=== PATIENT | female | born 1995 | race Caucasian/White ===

== ENCOUNTER 2017-11-25 14:13 | Inpatient (IN) | payer OTHER ==
[2017-11-25 15:24] LABS: ADD MAN DIFF? NO
[2017-11-25 15:28] LABS: BASOPHILS % 0.1 % (0.0-2.0); EOSINOPHILS % 0.1 % (0.0-7.0); HEMATOCRIT 29.8 % (37.0-47.0); HEMOGLOBIN 10.1 g/dl (12.0-16.0); LYMPHOCYTES # 1.6 10^3/ul (0.8-2.9); LYMPHOCYTES % 16.1 % (15.0-51.0); MEAN CORPUSCULAR HEMOGLOBIN 30.4 pg (29.0-33.0); MEAN CORPUSCULAR HGB CONC 33.9 g/dl (32.0-37.0); MEAN CORPUSCULAR VOLUME 89.8 fl (82.0-101.0); MEAN PLATELET VOLUME 10.7 fl (7.4-10.4); MONOCYTE # 0.5 10^3/ul (0.3-0.9); MONOCYTES % 4.5 % (0.0-11.0); NEUTROPHIL # 7.8 10^3/ul (1.6-7.5); NEUTROPHILS % 78.6 % (39.0-77.0); PLATELET COUNT 229 10^3/UL (140-415); RED BLOOD COUNT 3.32 10^6/ul (4.20-5.40)
[2017-11-25 15:35] LABS: ADD UMIC YES; UR ASCORBIC ACID 20 mg/dL (NEGATIVE); UR BACTERIA FEW /HPF (NONE SEEN); UR BILIRUBIN (Dip) NEGATIVE (NEGATIVE); UR BLOOD (Dip) 2+ mg/dL (NEGATIVE); UR CLARITY CLEAR (CLEAR); UR COLOR YELLOW (YELLOW); UR GLUCOSE (Dip) 1+ mg/dL (NEGATIVE); UR KETONES (Dip) 2+ mg/dL (NEGATIVE); UR LEUKOCYTE ESTERASE (Dip) NEGATIVE Leu/ul (NEGATIVE); UR NITRITE (Dip) NEGATIVE (NEGATIVE); UR RBC 42 /HPF (0-5); UR SPECIFIC GRAVITY (Dip) 1.015 (1.003-1.030); UR TOTAL PROTEIN (Dip) NEGATIVE (NEGATIVE); UR UROBILINOGEN (Dip) 1+ mg/dL (NEGATIVE); UR WBC 5 /HPF (0-5)
[2017-11-25] MEDS: LACTATED RINGER'S 1,000 ML IV (15:40)
[2017-11-25] MEDS ORDERED: MAGNESIUM SULFATE 4 GM/100 ML 100 ML (16:19)
[2017-11-25] MEDS: MAGNESIUM SULFATE 4 GM/100 ML 100 ML IV (16:42)
[2017-11-25] MEDS: MAGNESIUM SULFATE 20 GM/500 ML 500 ML IV (17:06)
[2017-11-25] MEDS: BETAMET NA PHOS/AC(6 MG/ML) 5ML INJ IM (17:12)
[2017-11-25 19:04] LABS: MAGNESIUM 4.8 mg/dl (1.7-2.5)
[2017-11-26 01:40] LABS: MAGNESIUM 6.2 mg/dl (1.7-2.5)
[2017-11-26] MEDS ORDERED: ONDANSETRON 4 MG INJ (02:12)
[2017-11-26] MEDS: ONDANSETRON 4 MG INJ IV ×2 (02:25→16:39)
[2017-11-26] MEDS: MAGNESIUM SULFATE 20 GM/500 ML 500 ML IV ×2 (04:23→17:26)
[2017-11-26] MEDS: LACTATED RINGER'S 1,000 ML IV ×3 (05:14→19:06)
[2017-11-26 12:39] LABS: MAGNESIUM 6.3 mg/dl (1.7-2.5)
[2017-11-26 15:10] LABS: RAPID PLASMA REAGIN NONREACTIVE (NR)
[2017-11-26] MEDS: BETAMET NA PHOS/AC(6 MG/ML) 5ML INJ IM (17:17)
[2017-11-26 18:09] LABS: MAGNESIUM 5.7 mg/dl (1.7-2.5)
[2017-11-27] MEDS: ONDANSETRON 4 MG INJ IV (00:15)
[2017-11-27 01:09] LABS: MAGNESIUM 5.5 mg/dl (1.7-2.5)
[2017-11-27] MEDS: LACTATED RINGER'S 1,000 ML IV ×2 (06:09→15:08)
[2017-11-27] MEDS: MAGNESIUM SULFATE 20 GM/500 ML 500 ML IV (13:55)
[2017-11-27 16:48] LABS: MAGNESIUM 5.3 mg/dl (1.7-2.5)
[2017-11-28] MEDS: LACTATED RINGER'S 1,000 ML IV ×2 (00:21→10:11)
[2017-11-28] MEDS: ONDANSETRON 4 MG INJ IV (05:37)
[2017-11-28] MEDS: SENNA TAB PO (11:34)
== END 2017-11-28 15:30 | disposition home or self-care (01) | DRG 780 ==
LOC: OBT 14:13 → L-D 11-26 16:25 → PP1 11-27 15:21 → L-D 14:14 → OBT 16:14 → L-D 16:10
PROVIDERS: Obstetrics & Gynecology
DX: O47.03 False labor before 37 completed weeks of gestation, third trimester (principal); Z3A.33 33 weeks gestation of pregnancy
CPT/HCPCS: 36415; 76815; 76817; 76818; 81001; 83735; 85025; 86592; 86850; 86900; 86901; 87086; 96360

== ENCOUNTER 2018-01-09 20:22 | Inpatient (IN) | payer OTHER ==
[2018-01-09] MEDS: AMPICILLIN 2 GM/NS (PMX) 100 ML IV (00:05)
[2018-01-09] MEDS ORDERED: CARBOPROST 250 MCG INJ IM (21:00)
[2018-01-09] MEDS ORDERED: IBUPROFEN 600 MG TAB PO (21:00)
[2018-01-09] MEDS ORDERED: MISOPROSTOL 200 MCG TAB PR (21:00)
[2018-01-09] MEDS ORDERED: LIDOCAINE 1% (MPF) 30 ML INJ INJ (21:00)
[2018-01-09] MEDS ORDERED: METHYLERGONOVINE 0.2 MG INJ IM (21:00)
[2018-01-09] MEDS ORDERED: BUTORPHANOL 1 MG INJ IV (21:00)
[2018-01-09] MEDS ORDERED: OXYTOCIN 30 UNITS/LR 500 ML IV (21:00)
[2018-01-09] MEDS ORDERED: HYDROCODONE/APAP (5/325) TAB PO (21:00)
[2018-01-09] MEDS: LACTATED RINGER'S 1,000 ML IV ×2 (21:15→22:34)
[2018-01-09 22:10] LABS: ADD MAN DIFF? NO
[2018-01-09 22:14] LABS: BASOPHILS % 0.2 % (0.0-2.0); EOSINOPHILS % 0.3 % (0.0-7.0); HEMATOCRIT 30.8 % (37.0-47.0); HEMOGLOBIN 10.1 g/dl (12.0-16.0); LYMPHOCYTES # 2.2 10^3/ul (0.8-2.9); MEAN CORPUSCULAR HEMOGLOBIN 28.7 pg (29.0-33.0); MEAN CORPUSCULAR HGB CONC 32.8 g/dl (32.0-37.0); MEAN CORPUSCULAR VOLUME 87.5 fl (82.0-101.0); MEAN PLATELET VOLUME 11.7 fl (7.4-10.4); MONOCYTE # 0.6 10^3/ul (0.3-0.9); NEUTROPHIL # 6.3 10^3/ul (1.6-7.5); NEUTROPHILS % 69.1 % (39.0-77.0); NUCLEATED RED BLOOD CELLS% 0.2 /100WBC (0.0-0.0); PLATELET COUNT 268 10^3/UL (140-415); RED BLOOD COUNT 3.52 10^6/ul (4.20-5.40)
[2018-01-09 22:14] LABS: WHITE BLOOD COUNT 9.2 10^3/ul (4.8-10.8)
[2018-01-09 22:29] LABS: INR 0.93; PROTIME 12.6 Sec (11.9-14.9)
[2018-01-09 22:30] LABS: PARTIAL THROMBOPLASTIN TIME 26.2 Sec (25.0-35.0)
[2018-01-09 22:57] LABS: ADD UMIC YES; UR ASCORBIC ACID NEGATIVE (NEGATIVE); UR BILIRUBIN (Dip) NEGATIVE (NEGATIVE); UR BLOOD (Dip) NEGATIVE (NEGATIVE); UR CLARITY CLEAR (CLEAR); UR COLOR STRAW (YELLOW); UR GLUCOSE (Dip) NEGATIVE (NEGATIVE); UR KETONES (Dip) NEGATIVE (NEGATIVE); UR LEUKOCYTE ESTERASE (Dip) TRACE Leu/ul (NEGATIVE); UR NITRITE (Dip) NEGATIVE (NEGATIVE); UR RBC 1 /HPF (0-5); UR SPECIFIC GRAVITY (Dip) 1.005 (1.003-1.030); UR TOTAL PROTEIN (Dip) NEGATIVE (NEGATIVE); UR UROBILINOGEN (Dip) NEGATIVE (NEGATIVE); UR WBC 0 /HPF (0-5)
[2018-01-10] MEDS: AMPICILLIN 1 GM/NS (PMX) 50 ML IV ×6 (04:48→22:25)
[2018-01-10] MEDS ORDERED: DIPHENHYDRAMINE 50 MG INJ IV (05:00)
[2018-01-10] MEDS ORDERED: NALOXONE (0.4 MG/ML) INJ IV ×2 (05:00→18:30)
[2018-01-10] MEDS: LACTATED RINGER'S 1,000 ML IV ×3 (07:29→18:23)
[2018-01-10] MEDS: OXYTOCIN 30 UNITS/LR 500 ML IV (10:12)
[2018-01-10 15:22] LABS: RAPID PLASMA REAGIN NONREACTIVE (NR)
[2018-01-10] MEDS: BUTORPHANOL 2 MG INJ IV (15:26)
[2018-01-10] MEDS: FENTAnyl 2MCG/ML-ROPIV 0.2% 100 ML BAG EPI ×2 (20:07→22:45)
[2018-01-10 21:12] LABS: HEPATITIS B SURFACE ANTIGEN NEGATIVE (NEGATIVE)
[2018-01-10] MEDS: ONDANSETRON 4 MG INJ IV (22:17)
[2018-01-11] MEDS: LACTATED RINGER'S 1,000 ML IV ×2 (01:49→09:21)
[2018-01-11] MEDS: AMPICILLIN 1 GM/NS (PMX) 50 ML IV ×3 (02:34→11:00)
[2018-01-11] MEDS: ONDANSETRON 4 MG INJ IV (03:54)
[2018-01-11] MEDS: FENTAnyl 2MCG/ML-ROPIV 0.2% 100 ML BAG EPI ×2 (06:56→07:44)
[2018-01-11] MEDS ORDERED: OXYTOCIN 30 UNITS/LR 500 ML IV ×2 (09:30→17:30)
[2018-01-11] MEDS ORDERED: FENTAnyl 50 MCG/ML VIAL (09:31)
[2018-01-11] MEDS ORDERED: morphine SULFATE/PF (10 MG/10 ML) INJ (09:32)
[2018-01-11] MEDS ORDERED: METOCLOPRAMIDE 10 MG INJ (09:32)
[2018-01-11] MEDS ORDERED: OXYTOCIN 10 UNIT INJ (09:32)
[2018-01-11] MEDS ORDERED: PHENYLephrine (100 MCG/ML) 5ML SYG (09:32)
[2018-01-11] MEDS ORDERED: KETAMINE (100 MG/ML) 5 ML VIAL (09:53)
[2018-01-11] MEDS ORDERED: DEXAMETHASONE 4 MG/ML 1 ML INJ (10:08)
[2018-01-11] MEDS ORDERED: MIDAZOLAM 1 MG/ML 2 ML INJ (10:08)
[2018-01-11 10:24] LABS: AADO2 Cord Arterial 66.8 mmHg; Arterial Cord Blood pCO2 42.3 mmHG (25-50); CBA Base Excess -1.3 mmol/L; CBA COHb 1.4 %; CBA Oxygen Sat 74.7 mmHG; CBA Total Hemglobin 14.9 g/dl; CBV Base Excess -1.8 mmol/L; CBV COHb 1.1 %; CBV Oxygen Sat 73.4 mmHG; CBV Total Hemglobin 14.9 g/dl; Cord Blood Arterial pO2 32.3 mmHG (15.0-45.0); Cord Blood Venous AADO2 66.9 mmHg; Cord Blood Venous pO2 31.6 mmHG (15.0-45.0); MODE ROOM AIR; MetHgb Cord Arterial 0.9 %; MetHgb Cord Venous 0.8 %; Sample Type CBA; Sample Type CBV; Site CORD
[2018-01-11] MEDS ORDERED: ONDANSETRON 4 MG INJ IV (10:30)
[2018-01-11] MEDS ORDERED: morphine 2 MG INJ IV (10:30)
[2018-01-11] MEDS: MINERAL OIL LIGHT 10 ML VIAL TOP (10:30)
[2018-01-11] MEDS ORDERED: DIPHENHYDRAMINE 50 MG INJ IV (10:30)
[2018-01-11] MEDS ORDERED: TRIMETHOBENZAMIDE 100 MG/ML VIAL IM (10:30)
[2018-01-11] MEDS ORDERED: NALBUPHINE HCL (10 MG/1 ML) INJ IV (10:30)
[2018-01-11] MEDS ORDERED: NALOXONE (0.4 MG/ML) INJ IV (10:30)
[2018-01-11] MEDS: OXYTOCIN 30 UNITS/LR 500 ML IV ×4 (10:53→19:13)
[2018-01-11] MEDS: CEFAZOLIN 2 GM/50 ML (PMX) 50 ML IV (11:00)
[2018-01-11] MEDS: KETOROLAC 30 MG INJ IV ×2 (11:08→18:22)
[2018-01-11] MEDS ORDERED: CARBOPROST 250 MCG INJ IM (17:30)
[2018-01-11] MEDS ORDERED: METHYLERGONOVINE 0.2 MG INJ IM (17:30)
[2018-01-11] MEDS ORDERED: MISOPROSTOL 200 MCG TAB PR (17:30)
[2018-01-11] MEDS: LANOLIN 7 GM TUBE TOP (18:22)
[2018-01-11] MEDS: SENNA/DOCUSATE NA (8.6MG/50MG) TAB PO (21:00)
[2018-01-11] MEDS: morphine 2 MG INJ IV (23:09)
[2018-01-12] MEDS: LACTATED RINGER'S 1,000 ML IV ×4 (01:04→17:04)
[2018-01-12] MEDS: KETOROLAC 30 MG INJ IV (03:45)
[2018-01-12] MEDS: IBUPROFEN 800 MG TAB PO ×3 (05:27→21:36)
[2018-01-12 07:02] LABS: ADD MAN DIFF? NO
[2018-01-12 07:11] LABS: BASOPHILS % 0.2 % (0.0-2.0); EOSINOPHILS % 0.1 % (0.0-7.0); HEMATOCRIT 23.6 % (37.0-47.0); HEMOGLOBIN 7.9 g/dl (12.0-16.0); LYMPHOCYTES # 1.7 10^3/ul (0.8-2.9); LYMPHOCYTES % 10.6 % (15.0-51.0); MEAN CORPUSCULAR HEMOGLOBIN 29.2 pg (29.0-33.0); MEAN CORPUSCULAR HGB CONC 33.5 g/dl (32.0-37.0); MEAN CORPUSCULAR VOLUME 87.1 fl (82.0-101.0); MEAN PLATELET VOLUME 11.5 fl (7.4-10.4); MONOCYTE # 0.5 10^3/ul (0.3-0.9); MONOCYTES % 3.2 % (0.0-11.0); NEUTROPHIL # 13.4 10^3/ul (1.6-7.5); NEUTROPHILS % 85.4 % (39.0-77.0); PLATELET COUNT 214 10^3/UL (140-415); RED BLOOD COUNT 2.71 10^6/ul (4.20-5.40); RED CELL DISTRIBUTION WIDTH 15.9 % (11.5-14.5)
[2018-01-12 07:11] LABS: WHITE BLOOD COUNT 15.7 10^3/ul (4.8-10.8)
[2018-01-12 07:14] LABS: POSITIVE DIFF @See below
[2018-01-12] MEDS: morphine 2 MG INJ IV (08:14)
[2018-01-12 09:48] LABS: ANISOCYTOSIS 1+ (0-0); BAND NEUTROPHILS #M 2.6 10^3/ul (0.0-0.6); BAND NEUTROPHILS % (M) 17 % (0-4); LYMPHOCYTES % (M) 7 % (15-51); MICROCYTOSIS 1+ (0-0); MONOCYTE #M 0.1 10^3/ul (0.3-0.9); MONOCYTES % (M) 1 % (0-11); PLATELET ESTIMATE NORMAL; POLYCHROMASIA 2+ (0-0); SEG NEUT #M 12.2 10^3/ul (1.6-7.5); SEGMENTED NEUTROPHILS (M) % 75 % (39-77); SMUDGE%M 5 % (0-0)
[2018-01-12] MEDS: SENNA/DOCUSATE NA (8.6MG/50MG) TAB PO ×2 (10:01→21:36)
[2018-01-12] MEDS: OXYCODONE/ACETAMINOPHEN (5/325) TAB PO ×2 (13:38→19:43)
[2018-01-12] MEDS: FERROUS SULFATE (EC) 325 MG TAB PO (21:36)
[2018-01-13] MEDS: LACTATED RINGER'S 1,000 ML IV (01:04)
[2018-01-13] MEDS: IBUPROFEN 800 MG TAB PO ×3 (05:58→22:00)
[2018-01-13 09:11] LABS: ADD MAN DIFF? NO
[2018-01-13 09:19] LABS: WHITE BLOOD COUNT 14.7 10^3/ul (4.8-10.8)
[2018-01-13 09:19] LABS: BASOPHILS % 0.1 % (0.0-2.0); EOSINOPHILS # 0.1 10^3/ul (0.0-0.5); EOSINOPHILS % 0.7 % (0.0-7.0); HEMATOCRIT 21.7 % (37.0-47.0); HEMOGLOBIN 7.1 g/dl (12.0-16.0); LYMPHOCYTES # 1.3 10^3/ul (0.8-2.9); LYMPHOCYTES % 8.8 % (15.0-51.0); MEAN CORPUSCULAR HEMOGLOBIN 28.7 pg (29.0-33.0); MEAN CORPUSCULAR HGB CONC 32.7 g/dl (32.0-37.0); MEAN CORPUSCULAR VOLUME 87.9 fl (82.0-101.0); MEAN PLATELET VOLUME 11.3 fl (7.4-10.4); MONOCYTE # 0.5 10^3/ul (0.3-0.9); MONOCYTES % 3.3 % (0.0-11.0); NEUTROPHIL # 12.7 10^3/ul (1.6-7.5); NEUTROPHILS % 86.4 % (39.0-77.0); PLATELET COUNT 213 10^3/UL (140-415); RED BLOOD COUNT 2.47 10^6/ul (4.20-5.40); RED CELL DISTRIBUTION WIDTH 15.9 % (11.5-14.5)
[2018-01-13] MEDS: FERROUS SULFATE (EC) 325 MG TAB PO ×3 (11:16→20:56)
[2018-01-13] MEDS: SENNA/DOCUSATE NA (8.6MG/50MG) TAB PO ×2 (11:16→20:56)
[2018-01-13] MEDS: FOLIC ACID 1 MG TAB PO (13:37)
[2018-01-13] MEDS: OXYCODONE/ACETAMINOPHEN (5/325) TAB PO (20:56)
[2018-01-14] MEDS: IBUPROFEN 800 MG TAB PO ×2 (05:43→14:45)
[2018-01-14] MEDS: DIPHTH/TET/ACEL PERTUSS (ADULT) 0.5 ML VIAL IM* (07:25)
[2018-01-14] MEDS: FOLIC ACID 1 MG TAB PO (08:50)
[2018-01-14] MEDS: FERROUS SULFATE (EC) 325 MG TAB PO ×2 (08:50→14:45)
[2018-01-14] MEDS: SENNA/DOCUSATE NA (8.6MG/50MG) TAB PO (08:50)
== END 2018-01-14 19:50 | disposition home or self-care (01) | DRG 766 ==
LOC: OBT 20:22 → L-D 01-10 00:26 → PP1 01-11 16:42 → L-D 20:30 → OBT 20:59 → L-D 20:59
PROC: 10D00Z1 Extraction of Products of Conception, Low, Open Approach (ICD-10-PCS; principal; 2018-01-11 09:00)
PROC: 3E033VJ Introduction of Other Hormone into Peripheral Vein, Percutaneous Approach (ICD-10-PCS; 2018-01-11 09:00)
DX: O76 Abnormality in fetal heart rate and rhythm complicating labor and delivery (principal); Z3A.37 37 weeks gestation of pregnancy; Z37.0 Single live birth
CPT/HCPCS: 36415; 36600; 62319; 76815; 76818; 81001; 82803; 85025; 85610; 85730; 86592; 86850; 86900; 86901; 87086; 87340; 88307; 99464